=== PATIENT | male | born 1955 | race Caucasian/White ===

== ENCOUNTER 2018-07-06 00:32 | Emergency (ER) | payer MEDICAID ==
[~2018-07-06] VITALS: Ht 177.8 cm; Wt 100.0 kg
[~2018-07-06 00:32] MED LIST: ACET-2178 PO; ATOR10TA PO; CLON0.1T PO; DIPH25CA83 PO; DOCU100P PO; FLUO-124 PO; GABA-531 PO; IPRA3AMP9 HHN; ISOS60TA4 PO; LORA1TAB PO; LOSA25TA3 PO; METF500T PO; METO-396 PO; MULT-230 MT; QUET50TA PO; RANO500T3 PO; SENNA; TRAM50TA3 PO
[2018-07-06] MEDS ORDERED: MORPHINE SULFATE 4 MG/ML CPJ (NOT FOR IM USE) IV STA (01:24)
[2018-07-06] MEDS ORDERED: ONDANSETRON HCL 4MG/2ML INJ IV STA (01:24)
[2018-07-06 01:56] LABS: BASOPHILS % 0.4 % (0.0-2.0); HEMATOCRIT. 30.6 % (42.0-52.0); HEMOGLOBIN. 10.6 g/dL (14.0-18.0); LYMPHOCYTES % 23.2 % (20.0-50.0); MEAN CORPUSCULAR HEMOGLOBIN 29.1 pg (28.0-32.0); MEAN CORPUSCULAR VOLUME 84.1 fL (80.0-94.0); MEAN PLATELET VOLUME 9.4 fl (7.4-10.4); MONOCYTES % 9.5 % (2.0-8.0); NEUTROPHILS % 64.9 % (40.0-76.0); RED BLOOD CELL COUNT 3.64 mill/uL (4.7-6.1)
[2018-07-06 01:57] LABS: CHLORIDE 104 mEq/L (98-107)
[2018-07-06 06:47] VITALS: BP 156/80
[2018-07-06 10:34] LABS: PLATELET 39 x1000/uL (130-400)
[2018-07-06 10:36] LABS: PLATELET ESTIMATE MARKEDLY DECREASED
== END 2018-07-06 06:53 | disposition home or self-care (01) ==
LOC: ER 00:38
DX: R07.89 Other chest pain (principal); J44.9 Chronic obstructive pulmonary disease, unspecified; E11.9 Type 2 diabetes mellitus without complications; I10 Essential (primary) hypertension; I25.2 Old myocardial infarction; I25.810 Atherosclerosis of coronary artery bypass graft(s) without angina pectoris; Z98.890 Other specified postprocedural states; Z79.899 Other long term (current) drug therapy; Z88.6 Allergy status to analgesic agent
CPT/HCPCS: 36415; 71045; 80053; 83880; 84484; 85025; 93005; 96374; 96375; 99285; J2270; J2405